=== PATIENT | male | born 1980 | race African-American/Black ===

== ENCOUNTER 2020-08-16 08:18 | Emergency (ER) | payer OTHER ==
[~2020-08-16] VITALS: Ht 188 cm; Wt 150.0 kg
[2020-08-16] MEDS ORDERED: ALBUTEROL (0.083%) 2.5MG/3ML NEB HHN STA (08:59)
[2020-08-16] MEDS ORDERED: IPRATROPIUM BROMIDE (0.02%) 0.5MG/2.5ML NEB HHN STA (08:59)
[2020-08-16] MEDS ORDERED: PREDNISONE 20MG TABLET PO STA (08:59)
[2020-08-16] MEDS ORDERED: ALBU6.7H9 INH (09:31)
[2020-08-16] MEDS ORDERED: P20 MT (09:31)
[2020-08-16 10:46] VITALS: BP 135/88
== END 2020-08-16 10:50 | disposition home or self-care (01) ==
LOC: ER 08:18
DX: J45.901 Unspecified asthma with (acute) exacerbation (principal); I10 Essential (primary) hypertension; Z79.899 Other long term (current) drug therapy
CPT/HCPCS: 71045; 94644; 99285; J7512; Z7610

== ENCOUNTER 2021-08-20 23:44 | Emergency (ER) | payer OTHER ==
[~2021-08-20] VITALS: Ht 188 cm; Wt 150.0 kg
[~2021-08-20 23:44] MED LIST: ALBU6.7H9 INH; P20 MT
[2021-08-21] MEDS ORDERED: PREDNISONE 20MG TABLET PO STA (01:17)
[2021-08-21] MEDS ORDERED: IPRATROPIUM BROMIDE (0.02%) 0.5MG/2.5ML NEB HHN STA (01:17)
[2021-08-21 01:38] LABS: BASOPHILS % 0.3 % (0.0-2.0); HEMATOCRIT. 41.7 % (42.0-52.0); HEMOGLOBIN. 13.1 g/dL (14.0-18.0); LYMPHOCYTES % 21.6 % (20.0-50.0); MEAN CORPUSCULAR HEMOGLOBIN 23.3 pg (28.0-32.0); MEAN CORPUSCULAR VOLUME 74.5 fL (80.0-94.0); MONOCYTES % 7.5 % (2.0-8.0); NEUTROPHILS % 68.6 % (40.0-76.0); PLATELET 211 x1000/uL (130-400); RED BLOOD CELL COUNT 5.61 mill/uL (4.7-6.1); RED CELL DISTRIBUTION WIDTH 15.1 % (11.6-14.6)
[2021-08-21 01:55] LABS: CHLORIDE 107 mEq/L (98-107)
[2021-08-21 04:37] VITALS: BP 167/114
[2021-08-21] MEDS: ALBUTEROL (0.083%) 2.5MG/3ML NEB HHN SCH ×2 (04:49→05:02)
[2021-08-21] MEDS ORDERED: ALBUTEROL (0.083%) 2.5MG/3ML NEB HHN SCH (05:00)
[2021-08-21] MEDS ORDERED: PREDNISONE 20MG TABLET PO NR (05:00)
[2021-08-21] MEDS ORDERED: IPRATROPIUM BROMIDE (0.02%) 0.5MG/2.5ML NEB HHN NR (05:00)
[2021-08-21] MEDS ORDERED: P50 MT (05:17)
[2021-08-21] MEDS ORDERED: AMLO5TAB88 MT (05:17)
[2021-08-21] MEDS ORDERED: ALBU6.7H9 INH (05:17)
== END 2021-08-21 06:02 | disposition home or self-care (01) ==
LOC: ER 23:44
DX: J45.909 Unspecified asthma, uncomplicated (principal); I10 Essential (primary) hypertension
CPT/HCPCS: 36415; 71045; 80053; 83880; 85025; 93005; 94640; 99285; J7512; Z7610

== ENCOUNTER 2024-01-19 05:48 | Emergency (ER) | payer MEDICAID, OTHER ==
[~2024-01-19] VITALS: Ht 188 cm; Wt 150.0 kg
[~2024-01-19 05:48] MED LIST changes: +ALBU6.7H3 INH; -ALBU6.7H9 INH; +AMLO5TAB88 MT; +P50 MT
[2024-01-19 07:10] LABS: CHLORIDE 108 mEq/L (98-107); SODIUM 140 mEq/L (136-145)
[2024-01-19 07:11] LABS: CARBON DIOXIDE 28 mEq/L (21-32)
[2024-01-19 07:12] LABS: CALCIUM 9.3 mg/dL (8.7-10.4)
[2024-01-19 07:17] LABS: GLUCOSE 110 mg/dL (70-105); UREA NITROGEN BLOOD 9 mg/dL (9-23)
[2024-01-19 07:18] LABS: ALANINE AMINOTRANSFERASE 19 IU/L (10-49); ALBUMIN 4.3 g/dL (3.2-4.8); ASPARTATE AMINOTRANSFERASE 19 IU/L (<34)
[2024-01-19 07:19] LABS: BASOPHILS % 0.5 % (0.0-2.0); BILIRUBIN DIRECT 0.2 mg/dL (<=3.0); BILIRUBIN TOTAL 0.6 mg/dL (0.1-1.0); DIFFERENTIAL COMMENT 0; EOSINOPHILS % 1.8 % (0.0-5.0); HEMATOCRIT. 43.6 % (42.0-52.0); HEMOGLOBIN. 13.9 g/dL (14.0-18.0); LYMPHOCYTES % 26.3 % (20.0-50.0); MEAN CORPUSCULAR HGB CONC 31.8 g/dL (31.0-37.0); MEAN CORPUSCULAR VOLUME 75.4 fL (80.0-94.0); MEAN PLATELET VOLUME 10.2 fl (7.4-10.4); MONOCYTES % 7.4 % (2.0-8.0); PLATELET 184 x1000/uL (130-400); PROTEIN TOTAL 7.6 g/dL (6.0-8.3); RED BLOOD CELL COUNT 5.78 mill/uL (4.7-6.1); RED CELL DISTRIBUTION WIDTH 15.9 % (11.6-14.6)
[2024-01-19] MEDS: KETOROLAC 30MG/ML VIAL IV STA (08:31)
[2024-01-19] MEDS: DEXAMETHASONE 10 MG/ML VIAL IV ONE (08:31)
[2024-01-19] MEDS ORDERED: IOHEXOL-350 100 ML BOTTLE ONE (08:57)
[2024-01-19] MEDS ORDERED: ALBUTEROL (0.083%) 2.5MG/3ML NEB ONE (09:24)
[2024-01-19] MEDS ORDERED: IPRATROPIUM BROMIDE (0.02%) 0.5MG/2.5ML NEB ONE (09:24)
[2024-01-19 09:45] VITALS: PULSE 91; RESP 20; O2SAT 98
[2024-01-19] MEDS: IPRATROPIUM BROMIDE (0.02%) 0.5MG/2.5ML NEB HHN STA (09:45)
[2024-01-19] MEDS: ALBUTEROL (0.083%) 2.5MG/3ML NEB HHN STA (09:45)
[2024-01-19 11:30] VITALS: BP 157/77; PULSE 98; RESP 16; TEMP 36.94740; O2SAT 99
== END 2024-01-19 11:33 | disposition home or self-care (01) ==
LOC: ER 06:14
DX: J45.901 Unspecified asthma with (acute) exacerbation (principal); I10 Essential (primary) hypertension; Z98.890 Other specified postprocedural states; Z79.899 Other long term (current) drug therapy
CPT/HCPCS: 80076; 80048; 83605; 83690; 85025; 85610; 36415; 74177; 94640; 96374; 96375; 99285; Q9967; J1100; J1885; Z7610 ×5